=== PATIENT | female | born 2000 | race Caucasian/White ===

== ENCOUNTER 2021-08-31 02:35 | Inpatient (IN) | payer OTHER, SELFPAY ==
[2021-08-31 02:43] VITALS: BP 137/60; PULSE 90; RESP 17; TEMP 36.9; O2SAT 96; BMI 47.2
--- NOTE | 2021-08-31 02:48 | ED_ITS ---
HPI - Psych General Stated Complaint: si Time Seen by Provider: 08/31/21 02:43 Source: patient and EMS Mode of arrival: EMS Limitations: no limitations History of Present Illness HPI Narrative: Patient comes to the emergency room by EMS. Patient is a college student, EMS reports that the patient's friends heard that the patient was making suicidal statements, talking about life after . Patient states that she has a current plan to commit suicide. Patient refuses to disclose the plan. Patient states that she has history of overdosing with Prozac in the past in multiple suicide attempts. Patient currently taking Prozac and Wellbutrin, states she is compliant with her medications. Patient recently moved from [place] to [place], currently studying in [employer]. Patient was Section 12 by in and police department in the field, however they filled out the wrong form. Patient denies any suicide attempts lately. Related Data Allergies Allergy/AdvReac Type Severity Reaction Status Date / Time No Known Allergies Allergy Verified 08/31/21 02:51 Review of Systems Review of Systems: Constitutional : No Weight loss, No Fever, No Chills, No Night Sweats, No Fatigue, No Malaise ENT/Mouth : No Hearing loss, No Ear Pain, No Nasal Congestion, No Sinus Pain, No Hoarseness, No sore throat, No Rhinorrhea, No Swallowing Difficulty Eyes: No Eye Pain, No Swelling, No Redness, No Foreign Body, No Discharge, No Vision Changes Cardiovascular : No Chest Pain, No SOB, No Dyspnea on Exertion, No Orthopnea, No Edema, No Palpitations Respiratory : No Cough, No Sputum, No Wheezing, No Smoke Exposure, No Dyspnea Gastrointestinal : No Nausea, No Vomiting, No Diarrhea, No Constipation, No abdominal Pain, No Hematochezia, No Melena Genitourinary : no irregular bleeding, No Dysuria, No Urinary Frequency, No Hematuria, No Urinary Incontinence, No Urgency, No Flank Pain, No Urinary Flow Changes, No Hesitancy Musculoskeletal : No joint pain, No Myalgias, No Joint Swelling Skin : No Skin Lesions, No rash Neuro : No Weakness, No Numbness, No Paresthesias, No Loss of Consciousness, No Dizziness, No Headache Psych : Complaining of anxiety and depression, suicidal ideation, no homicidal ideation Heme/Lymph: No Bruising, No Bleeding,No Lymphadenopathy Endocrine : No Polyuria, No Polydipsia, No Temperature Intolerance PMFSH Past Medical History Medical History (Updated 08/31/21 @ 02:52 by Selam Modi MD) Anxiety and depression Physical Exam Const: Other: Appearance: Alert. Oriented X3. No acute distress. Eyes: Pupils equal, round and reactive to light. ENT: Pharynx normal. Neck: Normal inspection. Neck supple. No lymph nodes noted. No crepitus CVS: Normal heart rate and rhythm. Pulses normal. Normal S1 and S2 Respiratory: No respiratory distress. Breath sounds normal. No Wheezing. No rales Abdomen: Soft and nontender. No rigidity. No distention. Skin: Skin warm and dry. Normal skin color. Normal skin turgor. Extremities: No lower extremity edema. No Lacerations. No Rash Neuro: Oriented X 3. No motor deficit. No sensory deficit. Moving all extermities. No slurred speech. Cranial nerves 2-12 grossly intact Psych: Speaking in full sentences, making sense, calm, cooperative, teary Course Course Course Narrative: I will go ahead and fill out a Section 12 from. [facility] consult pending. Physician autumn rosenberg started at 02:55 Discharge Plan Discharge Clinical Impression: Anxiety and depression, Suicidal ideation
[2021-08-31 03:13] VITALS: BP 137/60; PULSE 90; RESP 17; TEMP 36.9; O2SAT 96
[2021-08-31 03:27] LABS: Appearance Urine HAZY; Color Urine DK YELLOW; Glucose Urine UA NEG (NEG); Leukocyte Esterase Urine NEG (NEG); Nitrite Urine NEG (NEG); Specific Gravity - Urine >= 1.030 (1.005-1.025); Urine Blood NEG (NEG); Urine Ketones NEG (NEG); Urine Protein NEG (NEG-TRACE)
[2021-08-31 03:32] LABS: UPreg QC Valid YES; Urine Pregnancy NEGATIVE (NEGATIVE)
[2021-08-31 03:47] LABS: Amphetamine Screen Urine Not Detected (Not Detect); Barbiturates, Urine Not Detected (Not Detect); Benzodiazepines Screen Urine Not Detected (Not Detect); Cannabinoid Screen Urine Not Detected (Not Detect); Cocaine Screen Urine Not Detected (Not Detect); Fentanyl, urine Not Detected (Not Detect); Opiate Screen Urine Not Detected (Not Detect); Phencyclidine Screen Urine Not Detected (Not Detect)
[2021-08-31 03:53] LABS: COVID-19 Test Negative (Negative)
--- NOTE | 2021-08-31 06:01 | PC.NURSE ---
Patient slept through the night, no distress observed/reported, patient is [employer] student, behavior calm and pleasant, med rec completed/pending providers approval, N referral completed/confirmed, pendine eval in the morning, VSS, will continue to monitor.
[2021-08-31 10:56] VITALS: BP 108/48; PULSE 97; TEMP 37.3; O2SAT 95
[2021-08-31 11:07] LABS: MANUAL DIFF FLAG NO
[2021-08-31 11:16] LABS: Basophils Percent Auto 0.5 % (0-2); Eosinophils Absolute Auto 0.1 X10*3/uL (0.0-0.4); Eosinophils Percent Auto 1.5 % (0-4); Hematocrit 38.1 % (37.0-47.0); Imm Gran Abs Auto 0.01 X10*3/uL (0.00-0.03); Imm Gran Pct Auto 0.1 % (0.0-0.4); Lymphocytes Absolute Auto 1.6 X10*3/uL (1.2-4.9); Lymphocytes Percent Auto 20.8 % (20-40); Mean Corpuscular HGB Conc 31.5 g/dl (31.0-35.0); Mean Corpuscular Hemoglobin 27.3 pg (27.0-33.0); Mean Corpuscular Volume 86.6 fL (80.0-98.0); Mean Platelet Volume 10.9 fL (9.4-12.3); Monocytes Absolute Auto 0.5 X10*3/uL (0.1-1.2); Monocytes Percent Auto 6.6 % (2-11); Neutrophils Absolute Auto 5.5 x10*3/uL (2.0-8.3); Neutrophils Percent Auto 70.5 % (45-73); Platelet Count 259 X10*3/uL (160-400); Red Cell Distribution Width 13.7 % (11.0-16.0); White Blood Count 7.9 X10*3/uL (4.8-10.8)
--- NOTE | 2021-08-31 11:19 | PC.NURSE ---
director of resident life at [facility] [phone] (Johny Peterson), called and requested that they be informed when discharged so they can have a safety plan in place.
[2021-08-31 11:28] LABS: Alanine Aminotransferase 16 U/L (0-31); Albumin Level 4.1 g/dL (3.5-5.0); Alkaline Phosphatase 65 U/L (39-117); Anion Gap 12 (12-20); Aspartate Amino Transferase 14 U/L (5-31); Bilirubin Direct 0.3 mg/dL (0.0-0.5); Bilirubin Total 0.8 mg/dL (0.0-1.0); Blood Urea Nitrogen 10 mg/dL (9-16); Calcium 9.4 mg/dL (8.4-10.2); Carbon Dioxide 24 mmol/L (22-29); Chloride 107 mmol/L (96-108); Creatinine Clr Calc Pharmacy 121.3; Estimated Glomerular Filt Rate > 60; Glucose Random 96 mg/dL (60-115); Potassium 4.2 mmol/L (3.3-5.1); Sodium 139 mmol/L (135-145); Total Protein 7.1 g/dL (6.5-8.0)
[2021-08-31] MEDS: FLUoxetine HCl 20 MG CAPSULE 40 MG PO (15:52)
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
[2021-08-31 18:00] VITALS: BP 116/81; PULSE 98; RESP 16; TEMP 36.7; O2SAT 98
[2021-09-01 09:26] VITALS: BP 129/63; PULSE 99; RESP 18; TEMP 36.4; O2SAT 97
[2021-09-01] MEDS: buPROPion HCl XL 150 MG TAB.ER.24H PO (09:27)
[2021-09-01] MEDS: FLUoxetine HCl 20 MG CAPSULE 40 MG PO (09:27)
[2021-09-01] MEDS: FLUoxetine HCl 20 MG CAPSULE PO (11:30)
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
[2021-09-01 21:32] VITALS: BP 115/55; PULSE 102; TEMP 36.7; O2SAT 97
[2021-09-02] MEDS: FLUoxetine HCl 20 MG CAPSULE 60 MG PO (09:18)
[2021-09-02] MEDS: buPROPion HCl XL 150 MG TAB.ER.24H PO (09:19)
--- NOTE | 2021-09-02 17:38 | P.PNPSI_ITS ---
Subjective Subjective Date of Service: 09/02/21 Reason For Visit: si Interim History: Seen and discussed. Patient reports she feels well today. Her mood is improved. She is tolerating the increase in Prozac well. No side effects. Slept OK. Appetite is good. Denies SI. Review of Systems Review of Systems Constitutional : No Weight loss, No Fever, No Chills, No Night Sweats, No Fatigue, No Malaise ENT/Mouth : No Hearing loss, No Ear Pain, No Nasal Congestion, No Sinus Pain, No Hoarseness, No sore throat, No Rhinorrhea, No Swallowing Difficulty Eyes: No Eye Pain, No Swelling, No Redness, No Foreign Body, No Discharge, No Vision Changes Cardiovascular : No Chest Pain, No SOB, No Dyspnea on Exertion, No Orthopnea, No Edema, No Palpitations Respiratory : No Cough, No Sputum, No Wheezing, No Smoke Exposure, No Dyspnea Gastrointestinal : No Nausea, No Vomiting, No Diarrhea, No Constipation, No abdominal Pain, No Hematochezia, No Melena Genitourinary : no irregular bleeding, No Dysuria, No Urinary Frequency, No Hematuria, No Urinary Incontinence, No Urgency, No Flank Pain, No Urinary Flow Changes, No Hesitancy Musculoskeletal : No joint pain, No Myalgias, No Joint Swelling Skin : No Skin Lesions, No rash Neuro : No Weakness, No Numbness, No Paresthesias, No Loss of Consciousness, No Dizziness, No Headache Psych : Complaining of anxiety and depression, suicidal ideation, no homicidal ideation Heme/Lymph: No Bruising, No Bleeding,No Lymphadenopathy Endocrine : No Polyuria, No Polydipsia, No Temperature Intolerance Mental Status Exam Mental Status Exam Narrative: appropriately dressed and groomed. cooperative with interview, no PMA/PMR. speech nml rate, amount, loudness, tone, latency. thoughts linear and logical. affect flexible, normo-intense, non-labile. mood good. SI - MRE saturday night (3 days ago). denies HI/AVH. Diagnostics Vital Signs (24Hr): Vital Signs - 24 hr 09/01/21 21:32 Temperature 98.0 F Pulse Rate 102 H Blood Pressure 115/55 L Pulse Oximetry 97 Body Mass Index 47.2 Labs Results: 08/31/21 11:01 08/31/21 11:01 Medications Medications Current Medications Acetaminophen (Acetaminophen 325 Mg Tablet) 650 mg PO Q6H PRN PRN Reason: Headache/Pain Mild Scale (1-3) Al Hydroxide/Mg Hydroxide (Magnesium Hydrox/Alum Hydrox 30 Ml Oral.Susp) 30 ml PO Q6H PRN PRN Reason: Heartburn/Nausea Bupropion HCl (Bupropion Hcl Xl 150 Mg Tab.Er.24h) 150 mg PO DAILY [facility] Last Admin: 09/02/21 09:19 Dose: 150 mg Documented by: Fluoxetine HCl (Fluoxetine Hcl 20 Mg Capsule) 60 mg PO DAILY [facility] Last Admin: 09/02/21 09:18 Dose: 60 mg Documented by: Hydroxyzine HCl (Hydroxyzine Hcl 25 Mg Tablet) 25 mg PO BEDTIME PRN PRN Reason: Anxiety Magnesium Hydroxide (Milk Of Magnesia 30 Ml Oral.Susp) 30 ml PO DAILY PRN PRN Reason: Constipation Trazodone HCl (Trazodone Hcl 50 Mg Tablet) 50 mg PO BEDTIME PRN PRN Reason: Insomnia Allergies Allergies Allergy/AdvReac Type Severity Reaction Status Date / Time bee pollen [bee stings] AdvReac Intermediate Anaphylaxis Verified 08/31/21 02:59 Assessment & Plan Assessment & Plan (1) Anxiety and depression: Status: Acute Code(s): F41.9 - Anxiety disorder, unspecified; F32.A - Depression, unspecified Assessment and Plan: improving since admission. no SI for 3 days. Prozac was increased from 40 mg daily to 60 mg daily. continue wellbutrin XL 150 mg daily. T/C increasing wellbutrin dosing. I spent minutes with the patient and/or on the patient floor today, greater than?50% of which was spent counseling/coordinating care. Reason for contiued inpatient stay Substantial Risk for: harm to self
[2021-09-02 21:32] VITALS: BP 132/68; PULSE 100; RESP 18; TEMP 36.6; O2SAT 95
[2021-09-03] MEDS: FLUoxetine HCl 20 MG CAPSULE 60 MG PO (09:17)
[2021-09-03] MEDS: buPROPion HCl XL 150 MG TAB.ER.24H PO (09:17)
[2021-09-03 09:23] VITALS: BP 120/70; PULSE 96; TEMP 36.4; O2SAT 98
--- NOTE | 2021-09-03 15:50 | P.PNPSI_ITS ---
Subjective Subjective Date of Service: 09/03/21 Reason For Visit: si Interim History: Seen and discussed. Patient seen in the day room. She was reading [employer]. Reports she feels well today. Her mood is improved. She is tolerating the increase in Prozac well. Says her 3 day is up on Saturday and hoping for DC then. No side effects. Slept OK. Appetite is good. Denies SI. Review of Systems Review of Systems Constitutional : No Weight loss, No Fever, No Chills, No Night Sweats, No Fatigue, No Malaise ENT/Mouth : No Hearing loss, No Ear Pain, No Nasal Congestion, No Sinus Pain, No Hoarseness, No sore throat, No Rhinorrhea, No Swallowing Difficulty Eyes: No Eye Pain, No Swelling, No Redness, No Foreign Body, No Discharge, No Vision Changes Cardiovascular : No Chest Pain, No SOB, No Dyspnea on Exertion, No Orthopnea, No Edema, No Palpitations Respiratory : No Cough, No Sputum, No Wheezing, No Smoke Exposure, No Dyspnea Gastrointestinal : No Nausea, No Vomiting, No Diarrhea, No Constipation, No abdominal Pain, No Hematochezia, No Melena Genitourinary : no irregular bleeding, No Dysuria, No Urinary Frequency, No Hematuria, No Urinary Incontinence, No Urgency, No Flank Pain, No Urinary Flow Changes, No Hesitancy Musculoskeletal : No joint pain, No Myalgias, No Joint Swelling Skin : No Skin Lesions, No rash Neuro : No Weakness, No Numbness, No Paresthesias, No Loss of Consciousness, No Dizziness, No Headache Psych : Complaining of anxiety and depression, suicidal ideation, no homicidal ideation Heme/Lymph: No Bruising, No Bleeding,No Lymphadenopathy Endocrine : No Polyuria, No Polydipsia, No Temperature Intolerance Mental Status Exam Mental Status Exam Narrative: appropriately dressed and groomed.? cooperative with interview, no PMA/PMR.? speech nml rate, amount, loudness, tone, latency.? thoughts linear and logical.? affect flexible, normo-intense, non-labile.? mood good. ? SI - MRE we dn night (4days ago).? denies HI/AVH. Diagnostics Vital Signs (24Hr): Vital Signs - 24 hr 09/03/21 09:23 09/03/21 20:30 Temperature 97.5 F 98 F Pulse Rate 96 90 Respiratory Rate 16 Blood Pressure 120/70 118/64 Pulse Oximetry 98 99 Body Mass Index 47.2 Labs Results: 08/31/21 11:01 08/31/21 11:01 Medications Medications Current Medications Acetaminophen (Acetaminophen 325 Mg Tablet) 650 mg PO Q6H PRN PRN Reason: Headache/Pain Mild Scale (1-3) Al Hydroxide/Mg Hydroxide (Magnesium Hydrox/Alum Hydrox 30 Ml Oral.Susp) 30 ml PO Q6H PRN PRN Reason: Heartburn/Nausea Bupropion HCl (Bupropion Hcl Xl 150 Mg Tab.Er.24h) 150 mg PO DAILY [facility] Last Admin: 09/03/21 09:17 Dose: 150 mg Documented by: Fluoxetine HCl (Fluoxetine Hcl 20 Mg Capsule) 60 mg PO DAILY [facility] Last Admin: 09/03/21 09:17 Dose: 60 mg Documented by: Hydroxyzine HCl (Hydroxyzine Hcl 25 Mg Tablet) 25 mg PO BEDTIME PRN PRN Reason: Anxiety Magnesium Hydroxide (Milk Of Magnesia 30 Ml Oral.Susp) 30 ml PO DAILY PRN PRN Reason: Constipation Trazodone HCl (Trazodone Hcl 50 Mg Tablet) 50 mg PO BEDTIME PRN PRN Reason: Insomnia Allergies Allergies Allergy/AdvReac Type Severity Reaction Status Date / Time bee pollen [bee stings] AdvReac Intermediate Anaphylaxis Verified 08/31/21 02:59 Assessment & Plan Assessment & Plan (1) Anxiety and depression: Status: Acute Code(s): F41.9 - Anxiety disorder, unspecified; F32.A - Depression, unspecified Assessment and Plan: improving since admission. no SI for 3 days. Prozac was increased from 40 mg daily to 60 mg daily. continue wellbutrin XL 150 mg daily. T/C increasing wellbutrin dosing. I spent minutes with the patient and/or on the patient floor today, greater than?50% of which was spent counseling/coordinating care. Reason for contiued inpatient stay Substantial Risk for: harm to self
[2021-09-03 20:30] VITALS: BP 118/64; PULSE 90; RESP 16; TEMP 36.6; O2SAT 99
[2021-09-04 09:41] VITALS: BP 125/72; PULSE 94; RESP 16; TEMP 36.7; O2SAT 96
[2021-09-04] MEDS: FLUoxetine HCl 20 MG CAPSULE 60 MG PO (09:48)
[2021-09-04] MEDS: buPROPion HCl XL 150 MG TAB.ER.24H PO (09:49)
--- NOTE | 2021-09-04 13:17 | HO.PSYCHPN ---
Subjective Subjective Date of Service: 09/04/21 Reason For Visit: si Interim History: pt reports she is doing well. would like to discharge tomorrow. feels medications are where she wants them to be. denies safety concerns. will need paper script to take to [place], [place], pharmacy. planning to have a friend pick her up at noon tomorrow. per staff, attending groups. visible but solitary. denies anxiety or depression but presents with flat affect. Mental Status Exam Mental Status Exam Narrative: appropriately dressed and groomed. cooperative with interview, no PMA/PMR. speech nml rate, amount, loudness, tone, latency. thoughts linear and logical. affect flexible, normo-intense, non-labile. mood it's good. no SI/HI/AVH. no SI since [facility]. Diagnostics Vital Signs (24Hr): Vital Signs - 24 hr 09/03/21 20:30 09/04/21 09:41 Temperature 98 F 98.0 F Pulse Rate 90 94 Respiratory Rate 16 16 Blood Pressure 118/64 125/72 Pulse Oximetry 99 96 Body Mass Index 47.2 Labs Results: 08/31/21 11:01 08/31/21 11:01 Medications Medications Current Medications Acetaminophen (Acetaminophen 325 Mg Tablet) 650 mg PO Q6H PRN PRN Reason: Headache/Pain Mild Scale (1-3) Al Hydroxide/Mg Hydroxide (Magnesium Hydrox/Alum Hydrox 30 Ml Oral.Susp) 30 ml PO Q6H PRN PRN Reason: Heartburn/Nausea Bupropion HCl (Bupropion Hcl Xl 150 Mg Tab.Er.24h) 150 mg PO DAILY [facility] Last Admin: 09/04/21 09:49 Dose: 150 mg Documented by: Fluoxetine HCl (Fluoxetine Hcl 20 Mg Capsule) 60 mg PO DAILY [facility] Last Admin: 09/04/21 09:48 Dose: 60 mg Documented by: Hydroxyzine HCl (Hydroxyzine Hcl 25 Mg Tablet) 25 mg PO BEDTIME PRN PRN Reason: Anxiety Magnesium Hydroxide (Milk Of Magnesia 30 Ml Oral.Susp) 30 ml PO DAILY PRN PRN Reason: Constipation Trazodone HCl (Trazodone Hcl 50 Mg Tablet) 50 mg PO BEDTIME PRN PRN Reason: Insomnia Allergies Allergies Allergy/AdvReac Type Severity Reaction Status Date / Time bee pollen [bee stings] AdvReac Intermediate Anaphylaxis Verified 08/31/21 02:59 Assessment & Plan Assessment & Plan (1) Anxiety and depression: Status: Acute Code(s): F41.9 - Anxiety disorder, unspecified; F32.A - Depression, unspecified Assessment and Plan: improving since admission. no SI since [facility]. Prozac was increased from 40 mg daily to 60 mg daily. continue wellbutrin XL 150 mg daily. discharge to outpt care 09/05. I spent minutes with the patient and/or on the patient floor today, greater than?50% of which was spent counseling/coordinating care. Reason for contiued inpatient stay Substantial Risk for: inability to function and rapid decompensation
[2021-09-04 19:36] VITALS: BP 137/82; PULSE 99; TEMP 36.4; O2SAT 97
[2021-09-05 09:30] VITALS: BP 122/64; PULSE 111; RESP 18; TEMP 36.3; O2SAT 98
[2021-09-05] MEDS: FLUoxetine HCl 20 MG CAPSULE 60 MG PO (09:31)
[2021-09-05] MEDS: buPROPion HCl XL 150 MG TAB.ER.24H PO (09:31)
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
== END 2021-09-05 12:37 | disposition home or self-care (01) | DRG 885 ==
LOC: HO.ED 10:20 → HO.PADLT16 14:14
PROVIDERS: Physician Assistant; Admitting Provider Psychiatry & Neurology Psychiatry; Emergency Provider Emergency Medicine; Visit Provider Psychiatry & Neurology Psychiatry
DX: F33.1 Major depressive disorder, recurrent, moderate (principal); R45.851 Suicidal ideations; F41.9 Anxiety disorder, unspecified; Z20.822 Contact with and (suspected) exposure to COVID-19; Z79.899 Other long term (current) drug therapy
CPT/HCPCS: 36415; 80048; 80076; 80307; 81003; 81025; 85025; 87635; 99285